=== PATIENT | male | born 2000 | race African-American/Black ===

== ENCOUNTER 2025-06-15 21:44 | Emergency (ER) | payer OTHER ==
[~2025-06-15] VITALS: Ht 180.3 cm; Wt 78.0 kg
[2025-06-15 21:57] VITALS: O2SAT 98
[2025-06-15] MEDS ORDERED: HALOPERIDOL LACTATE 5MG/ML VIAL IM ONE (22:15)
[2025-06-15 22:57] LABS: BASOPHILS % 0.2 % (0.0-2.0); EOSINOPHILS % 0.1 % (0.0-5.0); HEMATOCRIT. 44.0 % (42.0-52.0); HEMOGLOBIN. 14.6 g/dL (14.0-18.0); LYMPHOCYTES % 9.3 % (20.0-50.0); MEAN PLATELET VOLUME 8.0 fl (7.4-10.4); MONOCYTES % 7.1 % (2.0-8.0); NEUTROPHILS % 83.3 % (40.0-76.0); PLATELET 299 x1000/uL (130-400); RED BLOOD CELL COUNT 4.60 mill/uL (4.7-6.1); RED CELL DISTRIBUTION WIDTH 14.6 % (11.6-14.6)
[2025-06-15 23:04] LABS: CREATININE 1.2 mg/dL (0.6-1.3)
[2025-06-15 23:05] LABS: ETHANOL BLOOD < 10 mg/dL (<10); UREA NITROGEN BLOOD 15 mg/dL (9-23)
[2025-06-15] MEDS ORDERED: POTASSIUM CHLORIDE 20MEQ TABLET SR PO ONE (23:15)
[2025-06-16 00:34] LABS: *AMPHETAMINES SCREEN URINE PRESUMPTIVE POSITIVE (NEGATIVE); *BARBITURATES SCREEN URINE NEGATIVE (NEGATIVE); *BENZODIAZEPINES SCREEN URINE NEGATIVE (NEGATIVE); *COCAINE SCREEN URINE NEGATIVE (NEGATIVE); CANNABINOID URINE SCREEN PRESUMPTIVE POSITIVE (NEGATIVE); CLARITY URINE CLEAR (CLEAR); COLOR URINE DARK YELLOW (YELLOW); ECSTASY MDMA SCREEN URINE CONF.TEST INDICATED (NEGATIVE); GLUCOSE URINE NEGATIVE (NEGATIVE); KETONES URINE TRACE (NEGATIVE); LEUKOCYTE ESTERASE URINE NEGATIVE (NEGATIVE); METHADONE URINE SCREEN NEGATIVE (NEGATIVE); NITRITE URINE NEGATIVE (NEGATIVE); OCCULT BLOOD URINE NEGATIVE (NEGATIVE); OPIATES URINE SCREEN NEGATIVE (NEGATIVE); PH URINE 6.0 (4.5-8.0); PHENCYCLIDINE URINE SCREEN NEGATIVE (NEGATIVE); PROTEIN URINE 2+ (NEGATIVE); SPECIFIC GRAVITY URINE 1.036 (1.005-1.030); UROBILINOGEN URINE 2.0 E.U./dL (0.2-1.0)
[2025-06-16] MEDS: POTASSIUM CHLORIDE 20MEQ TABLET SR PO NR (00:55)
[2025-06-16] MEDS: HALOPERIDOL LACTATE 5MG/ML VIAL IM NR (00:55)
[2025-06-16 01:17] LABS: BACTERIA URINE TRACE; CALCIUM OXALATE CRYSTALS URINE 2+ /lpf; RBC URINE NONE SEEN /hpf (0-2); SQUAMOUS EPITHELIAL CELL URINE 1+ /lpf (RARE/1+)
[2025-06-16] MEDS ORDERED: HYDROXYZINE 25MG TABLET PO PRN (13:00)
[2025-06-16] MEDS: OLANZAPINE 5MG TABLET PO SCH (13:30)
[2025-06-16 16:20] VITALS: BP 106/65; PULSE 70; RESP 14; TEMP 36.6; O2SAT 100
== END 2025-06-16 16:21 ==
LOC: ER 21:44
DX: F22 Delusional disorders (principal); F15.10 Other stimulant abuse, uncomplicated; F20.9 Schizophrenia, unspecified; Z20.822 Contact with and (suspected) exposure to COVID-19; Z79.899 Other long term (current) drug therapy
CPT/HCPCS: 80305; 80048; 81003; 80307; 80329; 80320; 85025; 36415; 99285; 87426; 96372; J1630; J2060; G0480

== ENCOUNTER 2025-06-22 17:34 | Emergency (ER) | payer OTHER ==
[~2025-06-22] VITALS: Ht 175.3 cm; Wt 73.0 kg
[2025-06-22 17:36] VITALS: O2SAT 98
[2025-06-22 18:33] LABS: BASOPHILS % 0.3 % (0.0-2.0); EOSINOPHILS % 0.0 % (0.0-5.0); HEMATOCRIT. 44.4 % (42.0-52.0); HEMOGLOBIN. 14.7 g/dL (14.0-18.0); LYMPHOCYTES % 10.0 % (20.0-50.0); MEAN PLATELET VOLUME 8.0 fl (7.4-10.4); MONOCYTES % 2.8 % (2.0-8.0); NEUTROPHILS % 86.9 % (40.0-76.0); PLATELET 336 x1000/uL (130-400); RED BLOOD CELL COUNT 4.68 mill/uL (4.7-6.1); RED CELL DISTRIBUTION WIDTH 14.9 % (11.6-14.6)
[2025-06-22 18:45] LABS: CREATININE 1.0 mg/dL (0.6-1.3)
[2025-06-22 18:46] LABS: ETHANOL BLOOD < 10 mg/dL (<10); UREA NITROGEN BLOOD 10 mg/dL (9-23)
[2025-06-22 19:46] LABS: *AMPHETAMINES SCREEN URINE PRESUMPTIVE POSITIVE (NEGATIVE); *BENZODIAZEPINES SCREEN URINE NEGATIVE (NEGATIVE)
[2025-06-22 19:47] LABS: *BARBITURATES SCREEN URINE NEGATIVE (NEGATIVE); *COCAINE SCREEN URINE NEGATIVE (NEGATIVE); CANNABINOID URINE SCREEN PRESUMPTIVE POSITIVE (NEGATIVE); ECSTASY MDMA SCREEN URINE CONF.TEST INDICATED (NEGATIVE); METHADONE URINE SCREEN NEGATIVE (NEGATIVE); OPIATES URINE SCREEN NEGATIVE (NEGATIVE); PHENCYCLIDINE URINE SCREEN NEGATIVE (NEGATIVE)
[2025-06-22] MEDS: DIPHENHYDRAMINE 50MG/ML VIAL IM ONE (21:42)
[2025-06-22] MEDS: LORAZEPAM 0.5MG TABLET PO ONE (21:43)
[2025-06-22] MEDS: HALOPERIDOL LACTATE 5MG/ML VIAL IM ONE (21:43)
[2025-06-23] MEDS: HYDROXYZINE 25MG TABLET PO PRN (10:59)
[2025-06-23] MEDS: OLANZAPINE 5MG TABLET PO SCH (10:59)
[2025-06-23 14:20] VITALS: BP 133/90; PULSE 80; RESP 18; TEMP 36.8; O2SAT 98
== END 2025-06-23 14:10 ==
LOC: ER 17:34
DX: R44.0 Auditory hallucinations (principal); F15.10 Other stimulant abuse, uncomplicated; Z20.822 Contact with and (suspected) exposure to COVID-19; Z91.010 Allergy to peanuts; Z86.59 Personal history of other mental and behavioral disorders
CPT/HCPCS: 80305; 80048; 80307; 80329; 80320; 85025; 36415; 96372; 99285; 87426; J1200; J1630; J2060; Z7610 ×2; G0480